=== PATIENT | male | born 1945 | race Caucasian/White ===

== ENCOUNTER 2023-04-01 07:20 | Inpatient (IN) | payer OTHER ==
[2023-03-25 11:54] LABS: BASOPHILS % (AUTO) 0.3 % (0-1); EOSINOPHILS # (AUTO) 0.1 X10'3 (0-0.9); EOSINOPHILS % (AUTO) 2.2 % (0-6); LYMPHOCYTES # (AUTO) 2.1 X10'3 (1.1-4.8); LYMPHOCYTES % (AUTO) 32.1 % (21-51); MEAN CORPUSCULAR HEMOGLOBIN 30.3 PG (27.0-31.0); MEAN CORPUSCULAR HGB CONC 34.3 g/dL (33.0-36.5); MEAN CORPUSCULAR VOLUME 88.1 FL (78-98); MEAN PLATELET VOLUME 6.9 FL (7.4-10.4); MONOCYTES # (AUTO) 0.3 X10'3 (0-0.9); MONOCYTES % (AUTO) 5.4 % (2-12); NEUTROPHILS # (AUTO) 3.9 X10'3 (1.8-7.7); PRE OP HEMOGLOBIN 14.1 g/dL (14.0-17.9); PRE OP PLATELET COUNT 167 X10'3 (140-440); RED BLOOD COUNT 4.66 X10'6 (4.70-6.10)
[2023-03-25 12:06] LABS: ALBUMIN 3.7 G/DL (3.4-5.0); ALBUMIN/GLOBULIN RATIO 1.2 (1.1-1.5); ALKALINE PHOSPHATASE 101 IU/L (46-116); BLOOD UREA NITROGEN 26 MG/DL (7-18); BUN/CREATININE RATIO 19.8 (10.0-20.0); CALCIUM 8.7 MG/DL (8.5-10.1); CHLORIDE 110 MMOL/L (99-107); CREATININE 1.31 MG/DL (0.60-1.10); PRE OP ALT 32 U/L (30-65); PRE OP ANION GAP 6 (8-16); PRE OP AST 25 U/L (10-37); PRE OP GLUCOSE 131 MG/DL (70-104); PRE OP POTASSIUM 4.5 MMOL/L (3.4-5.1); PRE OP SODIUM 142 MMOL/L (135-145); TOTAL PROTEIN 6.8 G/DL (6.4-8.2); eGFR 53 ML/MIN
[2023-03-25 12:23] LABS: PRE OP BILIRUB, TOTAL 1.2 MG/DL (0.0-1.0)
[~2023-04-01] VITALS: Ht 182.9 cm; Wt 89.7 kg
[2023-04-01] VITALS (23 sets, daily range): BP systolic 109–152; BP diastolic 63–90
[~2023-04-01 07:20] MED LIST: ACET325T65 PO; AMLO2.5T2 PO; ASPI-612 PO; ATOR20TA66 PO; CHOL20004 PO; HYDROcodone/acetaminophen 10/325mg tab PO PRN; HYDROmorphone 1 mg/ml syringe IV PRN; HYDROmorphone inj. 0.5 MG/0.5 ML DISP.SYRIN IV PRN; IBUP-1985 PO; LACT1CAP65 PO; VITA-268 PO; acetaminophen 325mg tablet PO ONE; acetaminophen 325mg tablet PO PRN; bisacodyl 10mg suppository rectal RC PRN; cefazolin 2gm/D5W 100mL 100 ML IV ONE; celeCOXIB 100mg capsule PO ONE; diphenhydrAMINE 25mg capsule PO PRN; famotidine 20mg tablet PO ONE; gabapentin 300mg capsule PO ONE; magnesium hydroxide 30ml (MOM) UD suspension PO PRN; metoclopramide 5 mg/ml inj IV ONE; naloxone 0.4 mg/ml inj IV PRN; ondansetron/PF 4mg/2ml inj IV PRN; oxyCODONE SR 10mg (sust. release) tab PO ONE; ringers solution, lacted 1,000 ML IV SCH; tranexamic acid inj. 1,000 MG in normal saline IV soln 100ML IV ONE; vancomycin 1,500 MG in NS 300ml IV soln IV ONE
[2023-04-01] MEDS ORDERED: cefazolin 2gm/D5W 100mL 100 ML IV SCH (08:00)
--- NOTE | 2023-04-01 08:30 | NUR ---
PT STATES HE BATHED W/HEBICLENS SOAP FOR 5 DAYS PER JOINT REPLACEMENT PROTOCOL, DR RIVAS DOS NOT HAVE HIS PTS USE BACTROBAN OINTMENT. RIGHT PEDAL/TIBIAL PULSE PALPABLE Addendum: 04/01/23 at 1155 by Tigist Canales RN Amended: Links added.
[2023-04-01] MEDS ORDERED: epiNEPHrine 1 mg/ml inj ONE (09:39)
[2023-04-01] MEDS ORDERED: ROPIVAcaine 0.5% (5mg/ml) 30ml vial ONE (09:39)
[2023-04-01] MEDS ORDERED: vancomycin 1,000mg inj ONE (09:39)
[2023-04-01] MEDS ORDERED: cloNIDine hcl/PF 100mcg/ml inj ONE (09:39)
[2023-04-01] MEDS ORDERED: ringers solution, lacted 1,000 ML IV SCH (09:45)
[2023-04-01] MEDS ORDERED: HYDROmorphone/PF 0.2 MG/ML SYRINGE IV PRN ×2 (09:45)
[2023-04-01] MEDS ORDERED: ondansetron/PF 4mg/2ml inj IV PRN (09:45)
[2023-04-01] MEDS ORDERED: morphine 2 MG/ML inj. syringe IV PRN (09:45)
[2023-04-01] MEDS ORDERED: fentaNYL/PF 50MCG/1 ML 2ML syringe ONE (10:28)
[2023-04-01] MEDS ORDERED: MIDAZolam 1 MG/ML 5ML VIAL ONE (10:29)
[2023-04-01] MEDS ORDERED: diphenhydrAMINE 50 mg/ml inj ONE (11:12)
[2023-04-01] MEDS ORDERED: LIDOcaine 1%/PF 5ML 10 MG/ML VIAL ONE (11:12)
[2023-04-01] MEDS ORDERED: propofol inj 20 ML IV ONE (11:12)
--- NOTE | 2023-04-01 11:55 | NUR ---
Received from OR via ORTHO BED , accompanied by Anesthesiologist DR MADRIGAL and report given by Anesthesiolgist. PT AWAKE, ALERT AND ORIENTED. SPINAL SENSATION LEVEL NOTED TO BE AT NIPPLE LEVEL. PT DENIES PAIN AND NAUSEA. NOT YET ABLE TO WIGGLE TOES. PT JOKING, LAUGHING AND IN GOOD SPIRITS.
--- NOTE | 2023-04-01 12:35 | NUR ---
RADIOLOGY IN DOING POST OP XRAY ORDERED BY .
[2023-04-01] MEDS ORDERED: tranexamic acid inj. 100 MG in normal saline 100ml IV soln 99 ML IV ONE (13:00)
--- NOTE | 2023-04-01 13:11 | NUR ---
PT READY FOR XFER TO ROOM, NURSE AYAKA TAKING LUNCH. WILL XFER PT IN APPROX 30 MIN. SPOUSE LAQUITA AND FAMILY AWARE. PT DOING GREAT. TOLERATING WATER AND RESTING COMFORTABLY.
--- NOTE | 2023-04-01 14:00 | NUR ---
Received pt report from recovery nurse KATERYNA Marquez.
[2023-04-01] MEDS ORDERED: tranexamic acid inj. 1,000 MG in normal saline 100ml IV soln 90 ML IV ONE (14:10)
--- NOTE | 2023-04-01 14:15 | NUR ---
PT TO 4009 C VIA BED. REPORT GIVEN TO AYAKA AVENDAÑO WHO ASSUMED CARE OF PT UPON XFER TO ROOM . PT ORIENTED TO ROOM AND CALL LIGHT. BED LOW, LOCKED, RAILS UP X 2. AT BEDSIDE. PT CONTINUES TO DENY PAIN AND NAUSEA AND STATED READINESS FOR X COSTA TO ROOM. DRSG TO RIGHT HIP CDI. SCDS ON. 2 BAGS TO ROOM 4009 C.
[2023-04-01] MEDS: potassium cl 20mEq in 1/2 NS 1,000 ML IV SCH ×3 (14:35→22:32)
[2023-04-01] MEDS: cefazolin 2gm/D5W 100mL 100 ML IV SCH (16:29)
--- NOTE | 2023-04-01 18:00 | NUR ---
I have reviewed and agree w/ interventions, assessments, and documentation by Aaron Luther LVN.
--- NOTE | 2023-04-01 18:20 | NUR ---
Patient in room ORTHO 4009. I have received report from LANDON Walker and had the opportunity to ask questions and assume patient care.
--- NOTE | 2023-04-01 18:28 | NUR ---
Problems reprioritized. Patient report given, questions answered & plan of care reviewed with KATERYNA Breen.
[2023-04-01] MEDS: ascorbic acid 500mg tablet PO SCH (19:36)
[2023-04-01] MEDS: gabapentin 300mg capsule PO SCH (19:37)
[2023-04-01] MEDS ORDERED: VANCOMYCIN 1,500MG inj. 1,500 MG in normal saline 500ml IV soln 300 ML IV ONE (20:00)
[2023-04-01] MEDS ORDERED: sennosides 8.6mg tablet PO SCH (21:00)
[2023-04-01] MEDS: HYDROcodone/acetaminophen 10/325mg tab PO PRN (21:10)
[2023-04-02] MEDS: cefazolin 2gm/D5W 100mL 100 ML IV SCH (00:21)
[2023-04-02 02:00] VITALS: BP 109/65
[2023-04-02 06:00] VITALS: BP 118/74
[2023-04-02 06:15] LABS: ANION GAP 4 (8-16); CHLORIDE 106 MMOL/L (99-107); POTASSIUM 4.6 MMOL/L (3.5-5.1); SODIUM 138 MMOL/L (135-145); TOTAL CARBON DIOXIDE 28.1 MMOL/L (24-32)
[2023-04-02] MEDS: HYDROcodone/acetaminophen 10/325mg tab PO PRN ×2 (06:16→15:29)
[2023-04-02 06:34] LABS: BASOPHILS % (AUTO) 0.2 % (0-1); EOSINOPHILS # (AUTO) 0.1 X10'3 (0-0.9); EOSINOPHILS % (AUTO) 1.7 % (0-6); HEMATOCRIT 34.6 % (42.0-52.0); HEMOGLOBIN 12.3 g/dl (14.0-17.9); LYMPHOCYTES # (AUTO) 1.5 X10'3 (1.1-4.8); LYMPHOCYTES % (AUTO) 24.3 % (21-51); MEAN CORPUSCULAR HEMOGLOBIN 31.3 PG (27.0-31.0); MEAN CORPUSCULAR HGB CONC 35.5 g/dL (33.0-36.5); MEAN CORPUSCULAR VOLUME 88.2 FL (78-98); MEAN PLATELET VOLUME 7.2 FL (7.4-10.4); MONOCYTES # (AUTO) 0.6 X10'3 (0-0.9); MONOCYTES % (AUTO) 9.8 % (2-12); PLATELET COUNT 132 X10'3 (140-440); RED BLOOD COUNT 3.92 X10'6 (4.70-6.10); RED CELL DISTRIBUTION WIDTH 13.3 % (11.5-14.5); WHITE BLOOD COUNT 6.2 X10'3 (4.5-11.0)
--- NOTE | 2023-04-02 06:39 | NUR ---
Patient in room ORTHO 4009. I have received report from Nuha and had the opportunity to ask questions and assume patient care.
[2023-04-02] MEDS: gabapentin 300mg capsule PO SCH ×2 (07:17→12:56)
[2023-04-02] MEDS: ascorbic acid 500mg tablet PO SCH (07:17)
[2023-04-02] MEDS ORDERED: multivitamins, therapeutics tablet PO SCH (08:00)
[2023-04-02] MEDS ORDERED: atorvastatin 20mg tablet PO SCH (08:00)
[2023-04-02] MEDS ORDERED: amLODIPine 2.5mg tablet PO SCH (08:00)
[2023-04-02] MEDS ORDERED: aspirin 325mg tablet PO SCH (08:30)
[2023-04-02 11:00] VITALS: BP_SYST 115; BP_SYST 117; BP_DIAS 66
--- NOTE | 2023-04-02 11:06 | NUR ---
Joint surgery consult: Pt s/p R hip surgery this admit per EMR. Pt seen by SOM at bedside for written/verbal high protein diet ed w/ RD contact information provided. SOM encouraged pt to contact dietitian's office if further nutrition questions/concerns. Addendum: 04/02/23 at [address] Amended: Links added.
[2023-04-02] MEDS ORDERED: celeCOXIB 100mg capsule PO SCH (20:00)
== END 2023-04-02 15:45 | disposition home or self-care (01) | DRG 470 ==
LOC: PAS 07:20 → ORTHO 4S 07:21
PROVIDERS: ADMIT Orthopaedic Surgery; ATTEND Orthopaedic Surgery
PROC: 0SR906Z Replacement of Right Hip Joint with Oxidized Zirconium on Polyethylene Synthetic Substitute, Open Approach (ICD-10-PCS; principal; 2023-04-01 10:29)
DX: M16.11 Unilateral primary osteoarthritis, right hip (principal); Z79.82 Long term (current) use of aspirin; Z79.899 Other long term (current) drug therapy
CPT/HCPCS: 36415; 72170; 80051; 80053; 82948; 85025; 86885; 86900; 86901; 87081; 93306; 97116; 97161; 97530; A7000; C1776; G0378; J0171; J0690; J0735; J1170; J1200; J2250; J2704; J2765; J2795; J3010; J3370; J3480; J3490; J7040; J7120; Q0163